=== PATIENT | female | born 1940 | race Caucasian/White ===

== ENCOUNTER → 2016-04-06 | Outpatient (CLI) | payer MEDICARE, OTHER ==
[2016-04-06 12:55] LABS: ABSOLUTE BASOPHILS # (AUTO) 0.2 10^3/uL (0.0-0.2); ABSOLUTE EOSINOPHILS # (AUTO) 0.9 10^3/uL (0.0-0.6); ABSOLUTE LYMPHOCYTES (AUTO) 2.7 10^3/uL (0.5-4.7); ABSOLUTE MONOCYTES (AUTO) 1.1 10^3/uL (0.1-1.4); ABSOLUTE NEUT (AUTO) 10.6 10^3/uL (1.7-8.2); BASOPHILS % (AUTO) 1.2 % (0-2); EOSINOPHILS % (AUTO) 5.5 % (0-6); HEMATOCRIT 38.1 % (36.0-47.0); HEMOGLOBIN 12.5 g/dL (12.0-15.5); HGB HCT DIFFERENCE -0.6; LYMPHOCYTES % (AUTO) 17.6 % (13-45); MEAN CORPUSCULAR HEMOGLOBIN 28.1 pg (27.0-33.4); MEAN CORPUSCULAR HGB CONC 32.7 g/dL (32.0-36.0); MEAN CORPUSCULAR VOLUME 86 fl (80-97); RED BLOOD COUNT 4.43 10^6/uL (3.72-5.28); SEGMENTED NEUTROPHILS % (AUTO) 68.7 % (42-78); WHITE BLOOD COUNT 15.5 10^3/uL (4.0-10.5)
[2016-04-06 13:11] LABS: ALANINE AMINOTRANSFERASE 24 U/L (9-52); ALBUMIN 4.3 g/dL (3.5-5.0); ALKALINE PHOSPHATASE 78 U/L (38-126); ANION GAP 11 (5-19); ASPARTATE AMINO TRANSFERASE 15 U/L (14-36); BILIRUBIN,TOTAL 0.7 mg/dL (0.2-1.3); BLOOD UREA NITROGEN 20 mg/dL (7-20); CALCIUM 9.8 mg/dL (8.4-10.2); CARBON DIOXIDE 28 mmol/L (22-30); CHLORIDE 102 mmol/L (98-107); CREATININE RESULT 0.67 mg/dL (0.52-1.25); GLUCOSE 89 mg/dL (75-110); IRON 67 ug/dL (37-170); POTASSIUM 4.8 mmol/L (3.6-5.0); SODIUM 140.8 mmol/L (137-145); TOTAL PROTEIN 6.7 g/dL (6.3-8.2); TRIGLYCERIDES 95 mg/dL (<150)
[2016-04-06 13:12] LABS: CHOLESTEROL 149.77 mg/dL (0-200); Direct HDL 68 mg/dL (>40)
[2016-04-06 13:23] LABS: DIRECT LDL 66 mg/dL (<100)
== END ==
LOC: OD 11:39
PROVIDERS: ATTEND Internal Medicine
DX: E11.9 Type 2 diabetes mellitus without complications (principal); I25.10 Atherosclerotic heart disease of native coronary artery without angina pectoris; R53.83 Other fatigue; E78.5 Hyperlipidemia, unspecified; D64.9 Anemia, unspecified
CPT/HCPCS: 36415; 80053; 80061; 83036; 83540; 84443; 85025

== ENCOUNTER → 2016-07-12 | Outpatient (CLI) | payer MEDICARE, OTHER ==
[2016-07-12 13:33] LABS: ABSOLUTE BASOPHILS # (AUTO) 0.2 10^3/uL (0.0-0.2); ABSOLUTE EOSINOPHILS # (AUTO) 0.7 10^3/uL (0.0-0.6); ABSOLUTE LYMPHOCYTES (AUTO) 2.5 10^3/uL (0.5-4.7); ABSOLUTE MONOCYTES (AUTO) 0.7 10^3/uL (0.1-1.4); ABSOLUTE NEUT (AUTO) 8.7 10^3/uL (1.7-8.2); BASOPHILS % (AUTO) 1.5 % (0-2); EOSINOPHILS % (AUTO) 5.6 % (0-6); HEMATOCRIT 38.9 % (36.0-47.0); HEMOGLOBIN 12.4 g/dL (12.0-15.5); HGB HCT DIFFERENCE -1.7; LYMPHOCYTES % (AUTO) 19.2 % (13-45); MEAN CORPUSCULAR HEMOGLOBIN 28.3 pg (27.0-33.4); MEAN CORPUSCULAR VOLUME 88 fl (80-97); MONOCYTES % (AUTO) 5.8 % (3-13); RED BLOOD COUNT 4.41 10^6/uL (3.72-5.28); RED CELL DISTRIBUTION WIDTH 14.9 % (11.5-14.0); SEGMENTED NEUTROPHILS % (AUTO) 67.9 % (42-78); WHITE BLOOD COUNT 12.8 10^3/uL (4.0-10.5)
[2016-07-12 13:57] LABS: ALANINE AMINOTRANSFERASE 27 U/L (9-52); ALBUMIN 4.2 g/dL (3.5-5.0); ALKALINE PHOSPHATASE 104 U/L (38-126); ANION GAP 10 (5-19); ASPARTATE AMINO TRANSFERASE 17 U/L (14-36); BILIRUBIN,DIRECT 0.3 mg/dL (0.0-0.4); BILIRUBIN,TOTAL 0.6 mg/dL (0.2-1.3); BLOOD UREA NITROGEN 14 mg/dL (7-20); CALCIUM 10.3 mg/dL (8.4-10.2); CARBON DIOXIDE 29 mmol/L (22-30); CHLORIDE 103 mmol/L (98-107); CHOLESTEROL 160.69 mg/dL (0-200); CREATININE RESULT 0.65 mg/dL (0.52-1.25); Direct HDL 76 mg/dL (>40); GLUCOSE 97 mg/dL (75-110); MAGNESIUM 1.7 mg/dL (1.6-2.3); POTASSIUM 4.7 mmol/L (3.6-5.0); SODIUM 141.5 mmol/L (137-145); TOTAL PROTEIN 7.2 g/dL (6.3-8.2); TRIGLYCERIDES 83 mg/dL (<150)
[2016-07-12 14:08] LABS: DIRECT LDL 64 mg/dL (<100)
== END ==
LOC: OD 12:14
PROVIDERS: ATTEND Internal Medicine
DX: E11.9 Type 2 diabetes mellitus without complications (principal); I73.9 Peripheral vascular disease, unspecified; E78.5 Hyperlipidemia, unspecified; E53.8 Deficiency of other specified B group vitamins
CPT/HCPCS: 36415; 80053; 80061; 82043; 82607; 83036; 83735; 84443; 85025

== ENCOUNTER → 2017-04-04 | Outpatient (CLI) | payer MEDICARE, OTHER ==
[2017-04-04 13:44] LABS: HEMATOCRIT 35.8 % (36.0-47.0); MEAN CORPUSCULAR HEMOGLOBIN 28.7 pg (27.0-33.4); MEAN CORPUSCULAR HGB CONC 33.5 g/dL (32.0-36.0); MEAN CORPUSCULAR VOLUME 86 fl (80-97); PLATELET COUNT 995 10^3/uL (150-450); RED BLOOD COUNT 4.18 10^6/uL (3.72-5.28); RED CELL DISTRIBUTION WIDTH 15.9 % (11.5-14.0); WHITE BLOOD COUNT 20.3 10^3/uL (4.0-10.5)
[2017-04-04 14:07] LABS: ABSOLUTE LYMPHOCYTES# (MANUAL) 2.2 10^3/uL (0.5-4.7); ABSOLUTE MONOCYTES # (MANUAL) 0.4 10^3/uL (0.1-1.4); ABSOLUTE NEUTROPHILS# (MANUAL) 15.4 10^3/uL (1.7-8.2); BAND NEUTROPHILS % (MANUAL) 2 % (3-5); BASOPHILS % (MANUAL) 3 % (0-2); EOSINOPHILS % (MANUAL) 8 % (0-6); LYMPHOCYTES % (MANUAL) 10 % (13-45); METAMYELOCYTES % (MANUAL) 1 % (0); MONOCYTES % (MANUAL) 2 % (3-13); SEGMENTED NEUTROPHILS % (MAN) 73 % (42-78); TOTAL CELLS COUNTED 100
[2017-04-04 14:08] LABS: ANISOCYTOSIS SLIGHT; TOXIC GRANULATION 1+
[2017-04-04 14:09] LABS: OVALOCYTES 1+; PLATELET COMMENT INCREASED; POIKILOCYTOSIS 1+
[2017-04-04 14:13] LABS: ALANINE AMINOTRANSFERASE 21 U/L (9-52); ALBUMIN 4.4 g/dL (3.5-5.0); ALKALINE PHOSPHATASE 93 U/L (38-126); ANION GAP 11 (5-19); ASPARTATE AMINO TRANSFERASE 16 U/L (14-36); BILIRUBIN,DIRECT 0.2 mg/dL (0.0-0.4); BILIRUBIN,TOTAL 0.4 mg/dL (0.2-1.3); BLOOD UREA NITROGEN 12 mg/dL (7-20); CALCIUM 10.1 mg/dL (8.4-10.2); CARBON DIOXIDE 26 mmol/L (22-30); CHLORIDE 104 mmol/L (98-107); CHOLESTEROL 164.14 mg/dL (0-200); GLUCOSE 87 mg/dL (75-110); POTASSIUM 4.2 mmol/L (3.6-5.0); TOTAL PROTEIN 6.4 g/dL (6.3-8.2); TRIGLYCERIDES 113 mg/dL (<150)
[2017-04-04 14:24] LABS: DIRECT LDL 77 mg/dL (<100)
== END ==
LOC: OD 12:43
PROVIDERS: ATTEND Internal Medicine
DX: E11.9 Type 2 diabetes mellitus without complications (principal); I10 Essential (primary) hypertension; E78.5 Hyperlipidemia, unspecified; I25.10 Atherosclerotic heart disease of native coronary artery without angina pectoris; R53.83 Other fatigue
CPT/HCPCS: 36415; 80053; 80061; 83036; 85025

== ENCOUNTER 2017-07-02 13:05 | Inpatient (IN) | payer MEDICARE, OTHER ==
[2017-07-02] MEDS ORDERED: ONDANSETRON HCL INJ/PF 4 MG/2 ML SDV IV ONE ×2 (14:03→16:30)
[2017-07-02] MEDS ORDERED: NORMAL SALINE 1000 ML 1,000 ML IV ONE ×2 (14:03→16:32)
[2017-07-02 14:15] LABS: INTERNATIONAL RATION (INR) 1.01; PROTHROMBIN TIME 13.8 SEC (11.4-15.4)
[2017-07-02 14:17] LABS: HEMATOCRIT 31.9 % (36.0-47.0); HEMOGLOBIN 10.6 g/dL (12.0-15.5); MEAN CORPUSCULAR HEMOGLOBIN 28.7 pg (27.0-33.4); MEAN CORPUSCULAR HGB CONC 33.1 g/dL (32.0-36.0); MEAN CORPUSCULAR VOLUME 87 fl (80-97); RED BLOOD COUNT 3.69 10^6/uL (3.72-5.28); RED CELL DISTRIBUTION WIDTH 17.4 % (11.5-14.0)
[2017-07-02 14:27] LABS: ALANINE AMINOTRANSFERASE 32 U/L (9-52); ALBUMIN 4.2 g/dL (3.5-5.0); ALKALINE PHOSPHATASE 95 U/L (38-126); ANION GAP 11 (5-19); ASPARTATE AMINO TRANSFERASE 25 U/L (14-36); BILIRUBIN,DIRECT 0.3 mg/dL (0.0-0.4); BILIRUBIN,TOTAL 0.7 mg/dL (0.2-1.3); BLOOD UREA NITROGEN 23 mg/dL (7-20); CALCIUM 9.6 mg/dL (8.4-10.2); CARBON DIOXIDE 28 mmol/L (22-30); CHLORIDE 98 mmol/L (98-107); GLUCOSE 119 mg/dL (75-110); POTASSIUM 5.1 mmol/L (3.6-5.0); SODIUM 137.4 mmol/L (137-145); TOTAL PROTEIN 6.8 g/dL (6.3-8.2)
[2017-07-02 14:30] LABS: VENOUS BLOOD HCO3 26.6 mmol/L (20-32); VENOUS BLOOD PCO2 45.6 mmHg (35-63); VENOUS BLOOD PH 7.38 (7.30-7.42)
[2017-07-02 14:56] LABS: PLATELET COUNT 1369 10^3/uL (150-450); WHITE BLOOD COUNT 34.6 10^3/uL (4.0-10.5)
[2017-07-02 14:59] LABS: ABSOLUTE LYMPHOCYTES# (MANUAL) 4.2 10^3/uL (0.5-4.7); ABSOLUTE MONOCYTES # (MANUAL) 1.7 10^3/uL (0.1-1.4); ABSOLUTE NEUTROPHILS# (MANUAL) 28.4 10^3/uL (1.7-8.2); BASOPHILS % (MANUAL) 1 % (0-2); EOSINOPHILS % (MANUAL) 0 % (0-6); LYMPHOCYTES % (MANUAL) 12 % (13-45); METAMYELOCYTES % (MANUAL) 1 % (0); MONOCYTES % (MANUAL) 5 % (3-13); SEGMENTED NEUTROPHILS % (MAN) 81 % (42-78); TOTAL CELLS COUNTED 100
[2017-07-02 15:01] LABS: ANISOCYTOSIS 1+; OVALOCYTES SLIGHT; PLATELET COMMENT INCREASED; POIKILOCYTOSIS SLIGHT; TOXIC GRANULATION 1+; TOXIC VACUOLATION PRESENT
[2017-07-02 15:02] LABS: PLATELET LARGE PRESENT
[2017-07-02 15:44] LABS: APPEARANCE,URINE CLEAR; BILIRUBIN,URINE NEGATIVE (NEGATIVE); COLOR,URINE YELLOW; GLUCOSE, URINE NEGATIVE (NEGATIVE); KETONES,URINE TRACE mg/dL (NEGATIVE); LEUKOCYTE ESTERASE,URINE TRACE (NEGATIVE); NITRITE,URINE NEGATIVE (NEGATIVE); PROTEIN,URINE NEGATIVE (NEGATIVE); URINE SPECIFIC GRAVITY 1.009; UROBILINOGEN,URINE NEGATIVE mg/dL (<2.0)
[2017-07-02] MEDS ORDERED: METOCLOPRAMIDE HCL INJ/PF 10 MG/2 ML SDV IV ONE (16:29)
[2017-07-02] MEDS ORDERED: DIPHENHYDRAMINE HCL 50 MG/ML VIAL IV ONE (16:30)
--- NOTE | 2017-07-02 18:27 | RADIOLOGY REPORT (SQ) ---
EXAM DESCRIPTION: CHEST 2 VIEWS COMPLETED DATE/TIME: 07/02/2017 6:15 pm REASON FOR STUDY: Leukemia, cough, chills COMPARISON: [facility] 2014. TECHNIQUE: Frontal and lateral radiographic views of the chest acquired. NUMBER OF VIEWS: Two view. LIMITATIONS: None. FINDINGS: LUNGS AND PLEURA: Diffuse interstitial pattern throughout the lungs, upper and lower lobes . Small bilateral pleural effusions, blunting of the posterior costophrenic angles. MEDIASTINUM AND HILAR STRUCTURES: No masses or contour abnormalities. HEART AND VASCULAR STRUCTURES: Mild cardiomegaly. No pneumothorax. No consolidating pneumonia. BONES: No acute findings. HARDWARE: None in the chest. OTHER: No other significant finding. IMPRESSION: 1. Interstitial infiltrates and mild edema diffusely throughout the lungs. Although th e differential includes cardiogenic edema, given the history of cough, chills and leukemia, atypical causes of pneumonia (viral, mycobacterial, etc) are in the differential. A typical bacterial consoli dating pneumonia is not evident. TECHNICAL DOCUMENTATION: JOB ID: [id number] [employer]- All Rights Reserved Reading location - IP/workstation name: [email or web address]
[2017-07-02] MEDS ORDERED: FUROSEMIDE INJ/PF 40 MG/4 ML SDV IV ONE (18:46)
[2017-07-02] MEDS ORDERED: METHYLPREDNISOLONE INJ 125 MG/2 ML SDV IV ONE (18:46)
--- NOTE | 2017-07-02 18:59 | ER Document Report ---
ED General - General Chief Complaint: Nausea/Vomiting Stated Complaint: VOMITING Time Seen by Provider: 07/02/17 14:02 Notes: Patient is here complaining of nausea and vomiting and diarrhea since about Monday or Monday. Patient recently diagnosed with chronic myelogenous leukemia, about a month ago, and has just started on a new chemotherapy pill, Sprycel, her first dose was Monday and she takes it daily and did take it today. She has Zofran at home and it is not helping her nausea and vomiting. Denies any abdominal pains. Denies any chest pains. Has had some slight cough but denies feeling short of breath. Has had a low-grade fever. TRAVEL OUTSIDE OF THE [place] IN LAST 30 DAYS: No - Related Data Allergies/Adverse Reactions: No Known Allergies Allergy (Verified 07/02/17 13:10) Past Medical History - Social History Smoking Status: Never Smoker Chew tobacco use (# tins/day): No Frequency of alcohol use: None Drug Abuse: None Family History: Reviewed & Not Pertinent Patient has suicidal ideation: No Patient has homicidal ideation: No - Past Medical History Cardiac Medical History: Reports: Hx Atrial Fibrillation, Hx Hypertension - medicated Pulmonary Medical History: Denies: Hx Asthma, Hx COPD Endocrine Medical History: Reports: Hx Diabetes Mellitus Type 2 Malignancy Medical History: Reports: Hx Leukemia - CML Psychiatric Medical History: Denies: Hx Depression Past Surgical History: Reports: Hx Appendectomy, Hx Cholecystectomy, Hx Hysterectomy, Other - Lap band surgery - Immunizations Hx Pneumococcal Vaccination: 03/30/15 Review of Systems - Review of Systems Notes: REVIEW OF SYSTEMS: CONSTITUTIONAL : Has had low-grade fevers for a couple of days.. EENT: Denies eye, ear, nose or mouth or throat pain or other symptoms. CARDIOVASCULAR: Denies chest pain. RESPIRATORY: Has had some cough for the past couple of days. Denies feeling short of breath. GASTROINTESTINAL: Denies abdominal pain but has had nausea, vomiting, and diarrhea. GENITOURINARY: Denies difficulty or painful urinating, urinary frequency, blood in urine. MUSCULOSKELETAL: Denies back or neck pain. Denies joint pain or swelling. SKIN: Denies rash or skin lesions. NEUROLOGICAL: Denies LOC or altered mental status. Denies headache. Denies sensory loss or motor deficits. ALL OTHER SYSTEMS REVIEWED AND NEGATIVE. Physical Exam - Vital signs Vitals: Temp Pulse Resp BP Pulse Ox 99.3 F 79 16 82/65 L 89 L 07/02/17 13:24 07/02/17 13:24 07/02/17 13:24 07/02/17 13:24 07/02/17 13:24 Interpretation: Normal, Hypotensive, Hypoxic - Notes Notes: PHYSICAL EXAMINATION: GENERAL: Well-appearing, in no acute distress. O2 sat listed at 89% and blood pressure 82/65 in triage. HEAD: Atraumatic, normocephalic. EYES: Pupils equal round and reactive to light, extraocular movements intact. ENT: oropharynx clear without exudates. Moist mucous membranes. NECK: Normal range of motion, supple. LUNGS: Breath sounds clear and equal bilaterally. No significant wheezes or rales heard. HEART: Regular rate and rhythm without murmurs. ABDOMEN: Soft, nontender. No guarding or rebound. No masses. BACK: No tenderness throughout entire back. EXTREMITIES: Normal range of motion without pain. NEUROLOGICAL: Normal speech, normal gait. Normal sensory, motor, and reflex exams. Awake, alert, and oriented x3. Cranial nerves normal. PSYCH: Normal mood, normal affect. SKIN: Warm, dry, no rashes. Course - Re-evaluation Re-evalutation: 07/02/17 19:48 Patient developed more significant coughing during her stay in the department. She was given 2 L of saline. When patient would get up to go to the bathroom, off of oxygen, her O2 sat was noted to be in the mid 80s. Because of the persistent cough and the hypoxia, chest x-ray was obtained. Radiology read the x-ray as showing infiltrates and mild edema, perhaps cardiogenic edema, but atypical pneumonia had to be considered in the differential. Both the patient and the oncologist are aware that this new medication can cause fluid excess and overload in the lungs. Patient's white cell count is 34.6 and she recalls that it was 37.8 on June 27. She also recalls that her platelet count was about 1400 and it is 1369 here tonight. I spoke with the patient's on-call oncologist twice, the first time thinking we would send the patient home to follow-up in the office tomorrow, but the second time was after I obtain the patient's chest x-ray and it was evident that she would not be able to go home. We discussed plan of care and agreed to give the patient some Lasix to try to reduce the fluid load. Also to give her Solu- Medrol. Hospitalist was contacted and will see the patient and admit her for inpatient care. - Vital Signs Vital signs: Temp Pulse Resp BP Pulse Ox 99.3 F 79 23 H 122/55 L 91 L 07/02/17 13:24 07/02/17 13:24 07/02/17 18:01 07/02/17 17:46 07/02/17 18:01 - Laboratory Result Diagrams: 07/02/17 13:45 07/02/17 13:45 Laboratory results interpreted by me: 07/02/17 07/02/17 07/02/17 13:45 13:45 15:25 WBC 34.6 H* RBC 3.69 L Hgb 10.6 L Hct 31.9 L RDW 17.4 H Plt Count 1369 H* Seg Neuts % (Manual) 81 H Lymphocytes % (Manual) 12 L Metamyelocytes % 1 H Abs Neuts (Manual) 28.4 H Abs Monocytes (Manual) 1.7 H Abs Basophils (Manual) 0.3 H Potassium 5.1 H BUN 23 H Glucose 119 H Urine Ketones TRACE H Ur Leukocyte Esterase TRACE H 07/02/17 19:36 Patient recalls that her WBC was 37.8 on June 27. She also recalls that her platelet count was around 1400. Both of those numbers are very close to what she is today. - Diagnostic Test Radiology results interpreted by me: 07/02/17 19:37 Chest x-ray read by radiology reveals interstitial infiltrates and edema diffusely throughout the lungs. Although the differential includes cardiogenic edema, this could be atypical pneumonia or the beginnings of a bacterial pneumonia. - EKG Interpretation by Ma EKG shows normal: Sinus rhythm Rate: Normal Rhythm: NSR, APC's [place]/QRS: RBBB, LAHB/LAFB Critical Care Note - Critical Care Note Total time excluding time spent on procedures (mins): 45 Discharge - Discharge Clinical Impression: Hypoxia, Pulmonary edema, Chronic myelogenous leukemia Condition: Stable Disposition: ADMITTED INPATIENT Admitting Provider: Hospitalist Unit Admitted: Telemetry Referrals: BRIAN WALSH MD [Primary Care Provider] - Follow up as needed
--- NOTE | 2017-07-02 19:06 | EKG REPORT ---
SEVERITY:- ABNORMAL ECG - SINUS RHYTHM MULTIPLE ATRIAL PREMATURE COMPLEXES RBBB AND LPFB : Confirmed by: Azael Mcgraw 02-Jul-2017 19:06:18
[2017-07-02] MEDS ORDERED: ACETAMINOPHEN 325 MG TABLET PO PRN (20:10)
[2017-07-02] MEDS ORDERED: PROMETHAZINE HCL INJ 25 MG/1 ML VIAL IV PRN (20:10)
[2017-07-02] MEDS ORDERED: INSULIN LISPRO 100 UNIT/ML 3 ML VIAL SUBCUT PRN (20:17)
[2017-07-02] MEDS ORDERED: DEXTROSE 50%-WATER 25 GM/50 ML DISP.SYRIN IV PRN ×2 (20:17)
[2017-07-02] MEDS ORDERED: DEXTROSE 40% GEL 15 GM TUBE PO PRN ×2 (20:17)
[2017-07-02] MEDS ORDERED: GLUCAGON,HUMAN RECOMB 1 MG INJ IM PRN (20:17)
[2017-07-02] MEDS ORDERED: ZOLPIDEM TARTRATE 5 MG TABLET PO PRN (20:18)
[2017-07-02] MEDS ORDERED: HEPARIN SOD (PORCINE) 5,000 UNIT/ML 1 ML SYRINGE SUBCUT ONE ×2 (20:25→21:45)
[2017-07-02] MEDS ORDERED: ASPIRIN 325 MG TABLET PO ONE (20:27)
--- NOTE | 2017-07-02 20:47 | PDOC H&P ---
History of Present Illness Admission Date/PCP: BRIAN WALSH, History of Present Illness: ALEXIS CANCHOLA is a 76 year old female patient with past medical history of HTN, DM, HLD, A. fib presented with chief complaint of nausea, vomiting and diarrhea of 5 days duration. Of note patient recently diagnosed with CML and has been started on a new drug called Sprycel since Monday. Patient denies chills, fever, chest pain, cough, palpitation or diaphoresis. She has no nausea vomiting diarrhea but no abdominal pain, hematochezia or melena. Her initial blood workup shows leukocytosis of 34,000 and platelet count of 1,369 and her chest x-ray reported as interstitial infiltrates and mild edema diffusely throughout the lungs. They are attending consulted her primary oncologist and he is attributed her condition to the new medication that she has been started. He recommended to start her on Solu-Medrol. Past Medical History Cardiac Medical History: Reports: Atrial Fibrillation, Hypertension - medicated Pulmonary Medical History: Denies: Asthma, Chronic Obstructive Pulmonary Disease (COPD) Endocrine Medical History: Reports: Diabetes Mellitus Type 2 Malignancy Medical History: Reports: Leukemia - CML Psychiatric Medical History: Denies: Depression Hematology: Denies: Anemia, Sickle Cell Disease Past Surgical History Past Surgical History: Reports: Appendectomy, Cholecystectomy, Hysterectomy, Other - Lap band surgery Denies: Amputation Social History Smoking Status: Never Smoker Frequency of Alcohol Use: Rare Hx Recreational Drug Use: No Drugs: None Hx Prescription Drug Abuse: No - Advance Directive Resuscitation Status: Full Code Family History Family History: Reviewed & Not Pertinent Parental Family History Reviewed: Yes Children Family History Reviewed: Yes Sibling(s) Family History Reviewed.: Yes Medication/Allergy Home Medications: Atorvastatin Calcium [Lipitor] 20 mg PO DAILY 11/19/13 Biotin 2 cap PO DAILY 11/19/13 Bydureon 2 mg SUBCUT .QWK 11/19/13 Magnesium Oxide 400 mg PO TID 11/19/13 Metformin HCl [Glucophage] 1,000 mg PO BID 11/19/13 Telmisartan [Micardis 80 mg Tablet] 80 mg PO QAM 11/19/13 Amlodipine Besylate [Norvasc 5 mg Tablet] 5 mg PO DAILY 10/05/15 Cholecalciferol (Vitamin D3) [Vitamin D3 2000 unit Tablet] 2,000 unit PO BID 10/12 Metoprolol Succinate [Toprol Xl 25 mg Tab.sr] 25 mg PO DAILY 10/05/15 Tramadol HCl 50 mg PO Q4 PRN 10/05/15 Zolpidem Tartrate [Ambien 5 mg Tablet] 5 mg PO HSP PRN 10/05/15 Dofetilide [Tikosyn 500 Mcg Capsule] 500 mcg PO Q12 #0 capsule 10/07/15 Lansoprazole [Prevacid 30 mg Odt Tablet] 30 mg PO BID@0600,1700 #0 tab.rap.dr Methocarbamol [Robaxin 500 mg Tablet] 500 mg PO QID #120 tablet 10/07/15 Prednisone [Deltasone 20 mg Tablet] 10 mg PO BID #60 tablet 10/07/15 Allergies/Adverse Reactions: No Known Allergies Allergy (Verified 07/02/17 13:10) Review of Systems Constitutional: PRESENT: as per HPI Eyes: PRESENT: as per HPI Cardiovascular: PRESENT: as per HPI Respiratory: PRESENT: as per HPI Gastrointestinal: PRESENT: as per HPI Neurological: PRESENT: as per HPI Physical Exam Vital Signs: Temp Pulse Resp BP Pulse Ox 99.3 F 79 23 H 122/55 L 91 L 07/02/17 13:24 07/02/17 13:24 07/02/17 18:01 07/02/17 17:46 07/02/17 18:01 Intake & Output 07/01/17 07/02/17 07/03/17 06:59 06:59 06:59 Weight 72.5 kg General appearance: PRESENT: mild distress Head exam: PRESENT: atraumatic, normocephalic Respiratory exam: PRESENT: clear to auscultation nazario. ABSENT: rales, rhonchi, wheezes Cardiovascular exam: PRESENT: RRR. ABSENT: diastolic murmur, rubs, systolic murmur GI/Abdominal exam: PRESENT: normal bowel sounds, soft. ABSENT: distended, guarding, mass, organolmegaly, rebound, tenderness Results Laboratory Results: 07/02/17 13:45 07/02/17 13:45 07/02/17 07/02/17 07/02/17 13:45 13:45 14:01 WBC 34.6 H* RBC 3.69 L Hgb 10.6 L Hct 31.9 L MCV 87 MCH 28.7 MCHC 33.1 RDW 17.4 H Plt Count 1369 H* Seg Neutrophils % Not Reportable Lymphocytes % Not Reportable Monocytes % Not Reportable Eosinophils % Not Reportable Basophils % Not Reportable Absolute Neutrophils Not Reportable Absolute Lymphocytes Not Reportable Absolute Monocytes Not Reportable Absolute Eosinophils Not Reportable Absolute Basophils Not Reportable VBG pH VBG pCO2 VBG HCO3 VBG Base Excess Sodium 137.4 Potassium 5.1 H Chloride 98 Carbon Dioxide 28 Anion Gap 11 BUN 23 H Creatinine 0.76 Est GFR ( Amer) > 60 Est GFR (Non-Af Amer) > 60 Glucose 119 H Lactic Acid 0.8 Calcium 9.6 Total Bilirubin 0.7 AST 25 ALT 32 Alkaline Phosphatase 95 Total Protein 6.8 Albumin 4.2 Urine Color Urine Appearance Urine pH Ur Specific [place] Urine Protein Urine Glucose (UA) Urine Ketones Urine Blood Urine Nitrite Ur Leukocyte Esterase Urine WBC (Auto) Urine RBC (Auto) 07/02/17 07/02/17 14:01 15:25 WBC RBC Hgb Hct MCV MCH MCHC RDW Plt Count Seg Neutrophils % Lymphocytes % Monocytes % Eosinophils % Basophils % Absolute Neutrophils Absolute Lymphocytes Absolute Monocytes Absolute Eosinophils Absolute Basophils VBG pH 7.38 VBG pCO2 45.6 VBG HCO3 26.6 VBG Base Excess 1.0 Sodium Potassium Chloride Carbon Dioxide Anion Gap BUN Creatinine Est GFR ( Amer) Est GFR (Non-Af Amer) Glucose Lactic Acid Calcium Total Bilirubin AST ALT Alkaline Phosphatase Total Protein Albumin Urine Color YELLOW Urine Appearance CLEAR Urine pH 5.0 Ur Specific [place] 1.009 Urine Protein NEGATIVE Urine Glucose (UA) NEGATIVE Urine Ketones TRACE H Urine Blood NEGATIVE Urine Nitrite NEGATIVE Ur Leukocyte Esterase TRACE H Urine WBC (Auto) 0 Urine RBC (Auto) 0 Impressions: Chest X-Ray 07/02/17 17:43 IMPRESSION: 1. Interstitial infiltrates and mild edema diffusely throughout the lungs. Although the differential includes cardiogenic edema, given the history of cough, chills and leukemia, atypical causes of pneumonia (viral, mycobacterial, etc) are in the differential. A typical bacterial consolidating pneumonia is not evident. Assessment & Plan - Diagnosis (1) Pneumonia Qualifiers: Pneumonia type: due to unspecified organism Is this a current diagnosis for this admission?: Yes Plan: There is a patient does not have any clinical symptoms of pneumonia but her chest x-ray reportedly worrisome for a typical pneumonia. Patient has been started on doxycycline. (2) Pulmonary edema Qualifiers: Chronicity: acute Qualified Code(s): J81.0 - Acute pulmonary edema Is this a current diagnosis for this admission?: Yes Plan: Patient has been started on Lasix. Patient also started on low-dose Solu-Medrol as recommended by her primary oncologist (3) CML (chronic myelocytic leukemia) Is this a current diagnosis for this admission?: Yes Plan: Per her primary oncologist (5) Diabetes mellitus Qualifiers: Diabetes mellitus type: type 2 Is this a current diagnosis for this admission?: Yes Plan: I will continue her metformin and she will be on sliding scale. - Time Time Spent: 30 to 50 Minutes - Inpatient Certification Medical Necessity: Significant Comorbidiites Make Outpatient Treatment Too Risky , Need For IV Fluids, Need for IV Antibiotics
[2017-07-02] MEDS ORDERED: DOXYCYCLINE HYCLATE INJ 100 MG VIAL IV PRN (21:44)
[2017-07-02] MEDS ORDERED: METHOCARBAMOL 500 MG TABLET PO SCH (22:00)
[2017-07-02] MEDS: DOXYCYCLINE HYCLATE 100 MG in DEXTROSE 5%-WATER 250 ML IV SCH (22:01)
[2017-07-02] MEDS ORDERED: DOFETILIDE 500 MCG CAPSULE ONE (22:20)
[2017-07-03] MEDS ORDERED: DIPHENHYDRAMINE HCL 25 MG CAPSULE PO PRN (00:05)
[2017-07-03] MEDS: DOFETILIDE 500 MCG CAPSULE PO SCH ×3 (00:13→20:06)
[2017-07-03] MEDS: METHYLPREDNISOLONE INJ 40 MG/1 ML SDV IV SCH ×2 (00:13→06:12)
[2017-07-03] MEDS: LANSOPRAZOLE 30 MG TAB.RAP.DR PO SCH (06:12)
[2017-07-03 06:42] LABS: HEMATOCRIT 31.1 % (36.0-47.0); HEMOGLOBIN 10.3 g/dL (12.0-15.5); MEAN CORPUSCULAR HEMOGLOBIN 28.5 pg (27.0-33.4); MEAN CORPUSCULAR VOLUME 86 fl (80-97); RED BLOOD COUNT 3.61 10^6/uL (3.72-5.28); RED CELL DISTRIBUTION WIDTH 16.8 % (11.5-14.0); WHITE BLOOD COUNT 29.3 10^3/uL (4.0-10.5)
[2017-07-03 07:02] LABS: ANION GAP 17 (5-19); BLOOD UREA NITROGEN 17 mg/dL (7-20); CALCIUM 9.6 mg/dL (8.4-10.2); CARBON DIOXIDE 25 mmol/L (22-30); CHLORIDE 102 mmol/L (98-107); GLUCOSE 193 mg/dL (75-110); POTASSIUM 4.3 mmol/L (3.6-5.0); SODIUM 143.9 mmol/L (137-145)
[2017-07-03 07:21] LABS: PLATELET COUNT 1407 10^3/uL (150-450)
[2017-07-03 07:24] LABS: ABSOLUTE LYMPHOCYTES# (MANUAL) 2.3 10^3/uL (0.5-4.7); ABSOLUTE MONOCYTES # (MANUAL) 0.3 10^3/uL (0.1-1.4); ABSOLUTE NEUTROPHILS# (MANUAL) 26.7 10^3/uL (1.7-8.2); BAND NEUTROPHILS % (MANUAL) 3 % (3-5); BASOPHILS % (MANUAL) 0 % (0-2); EOSINOPHILS % (MANUAL) 0 % (0-6); LYMPHOCYTES % (MANUAL) 8 % (13-45); METAMYELOCYTES % (MANUAL) 1 % (0); MONOCYTES % (MANUAL) 1 % (3-13); SEGMENTED NEUTROPHILS % (MAN) 87 % (42-78); TOTAL CELLS COUNTED 100
[2017-07-03 07:26] LABS: ANISOCYTOSIS 1+; PLATELET COMMENT INCREASED; POIKILOCYTOSIS 1+; TEAR DROP CELLS 1+; TOXIC GRANULATION SLIGHT; TOXIC VACUOLATION PRESENT
[2017-07-03] MEDS: LOSARTAN POTASSIUM 50 MG TABLET PO SCH (07:57)
[2017-07-03] MEDS ORDERED: (PENDING PHARMACY ID) (Telmisartan [Micardis 80 Mg Tablet] 80 MG) PO SCH (08:00)
--- NOTE | 2017-07-03 08:44 | PDOC CONSULTATION ---
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 She was initiated on Sprycel just last week, unfortunately she experienced nausea right after the first dose, she continued to take the medication and ultimately had some vomiting, about 3 days after initiation she began having cough and shortness of breath. Ultimately because she was not able to keep anything down she called her office and we recommended her to go to the ED. There she had chest x-ray which indicated evidence of fluid overload and bilateral small effusions. She was given IV hydration and ultimately was admitted because she was actually hypoxic. Past Medical History Cardiac Medical History: Reports: Atrial Fibrillation, Hypertension - medicated Pulmonary Medical History: Denies: Asthma, Chronic Obstructive Pulmonary Disease (COPD) Endocrine Medical History: Reports: Diabetes Mellitus Type 2 Malignancy Medical History: Reports: Leukemia - CML Psychiatric Medical History: Denies: Depression Hematology: Denies: Anemia, Sickle Cell Disease Past Surgical History Past Surgical History: Reports: Appendectomy, Cholecystectomy, Hysterectomy, Other - Lap band surgery Denies: Amputation Social History Information Source: Patient Smoking Status: Never Smoker Frequency of Alcohol Use: None Hx Recreational Drug Use: No Drugs: None Hx Prescription Drug Abuse: No - Advance Directive Resuscitation Status: Full Code Family History Family History: Reviewed & Not Pertinent Parental Family History Reviewed: Yes Children Family History Reviewed: Yes Sibling(s) Family History Reviewed.: Yes Medication/Allergy Allergies/Adverse Reactions: No Known Allergies Allergy (Verified 07/02/17 13:10) Review of Systems Constitutional: PRESENT: anorexia, fatigue, weakness Cardiovascular: PRESENT: dyspnea on exertion, orthropnea Respiratory: PRESENT: cough, dyspnea Gastrointestinal: PRESENT: nausea, vomiting Neurological: ABSENT: abnormal gait, abnormal speech, confusion, dizziness, focal weakness, syncope Psychiatric: ABSENT: anxiety, depression, homidical ideation, suicidal ideation Endocrine: ABSENT: cold intolerance, heat intolerance, polydipsia, polyuria Physical Exam Vital Signs: Temp Pulse Resp BP Pulse Ox 98.4 F 91 16 131/51 H 90 L 07/03/17 07:07 07/03/17 07:07 07/03/17 07:07 07/03/17 07:07 07/03/17 07:07 Intake & Output 07/02/17 07/03/17 07/04/17 06:59 06:59 06:59 Intake Total 385 Balance 385 Weight 72.5 kg General appearance: PRESENT: no acute distress, well-developed, well-nourished Head exam: PRESENT: atraumatic, normocephalic Eye exam: PRESENT: conjunctiva pink, EOMI, PERRLA. ABSENT: scleral icterus Ear exam: PRESENT: normal external ear exam Mouth exam: PRESENT: moist, tongue midline Neck exam: ABSENT: carotid bruit, JVD, lymphadenopathy, thyromegaly Respiratory exam: PRESENT: crackles Cardiovascular exam: PRESENT: RRR. ABSENT: diastolic murmur, rubs, systolic murmur Pulses: PRESENT: normal dorsalis pedis pul Vascular exam: PRESENT: normal capillary refill GI/Abdominal exam: PRESENT: normal bowel sounds, soft. ABSENT: distended, guarding, mass, organolmegaly, rebound, tenderness Rectal exam: PRESENT: deferred Extremities exam: PRESENT: full ROM. ABSENT: calf tenderness, clubbing, pedal edema Neurological exam: PRESENT: alert, awake, oriented to person, oriented to place , oriented to time, oriented to situation, CN II-XII grossly intact. ABSENT: motor sensory deficit Psychiatric exam: PRESENT: appropriate affect, normal mood. ABSENT: homicidal ideation, suicidal ideation Skin exam: PRESENT: dry, intact, warm. ABSENT: cyanosis, rash Results Laboratory Results: 07/03/17 06:19 07/03/17 06:19 07/03/17 07/03/17 06:19 06:19 WBC 29.3 H RBC 3.61 L Hgb 10.3 L Hct 31.1 L MCV 86 MCH 28.5 MCHC 33.0 RDW 16.8 H Plt Count 1407 H* Seg Neutrophils % Not Reportable Lymphocytes % Not Reportable Monocytes % Not Reportable Eosinophils % Not Reportable Basophils % Not Reportable Absolute Neutrophils Not Reportable Absolute Lymphocytes Not Reportable Absolute Monocytes Not Reportable Absolute Eosinophils Not Reportable Absolute Basophils Not Reportable Sodium 143.9 Potassium 4.3 Chloride 102 Carbon Dioxide 25 Anion Gap 17 BUN 17 Creatinine 0.66 Est GFR ( Amer) > 60 Est GFR (Non-Af Amer) > 60 Glucose 193 H Calcium 9.6 Magnesium 2.1 Impressions: Chest X-Ray 07/02/17 17:43 IMPRESSION: 1. Interstitial infiltrates and mild edema diffusely throughout the lungs. Although the differential includes cardiogenic edema, given the history of cough, chills and leukemia, atypical causes of pneumonia (viral, mycobacterial, etc) are in the differential. A typical bacterial consolidating pneumonia is not evident. Status: Image reviewed by me Assessment & Plan - Diagnosis (1) Pulmonary edema Qualifiers: Chronicity: acute Qualified Code(s): J81.0 - Acute pulmonary edema Is this a current diagnosis for this admission?: Yes Plan: Probably related to Sprycel, an uncommon side effect unfortunately is pleural effusion as well as edema, if this side effect comes about we recommend initiation of steroids as well as diuretics. She is also being treated as a possible atypical pneumonia, that should be continued. Ultimately she will need a steroid taper upon discharge. (2) Nausea & vomiting Qualifiers: Vomiting type: cyclical vomiting Vomiting Intractability: intractable Qualified Code(s): G43.A1 - Cyclical vomiting, intractable Is this a current diagnosis for this admission?: Yes Plan: Vomiting related to side effect of drug, this morning she feels a little bit better but still nauseous, we have to see how she does over the next 24 hours, she needs to be able to keep down fluids, and that should be the case in the next 24-48 hours. (3) CML (chronic myelocytic leukemia) Is this a current diagnosis for this admission?: Yes Plan: Chronic phase CML, we will need to discontinue Sprycel, as an outpatient we will decide on either initiation of Tasigna or Gleevec. - Time Time Spent: Greater than 70 Minutes - Inpatient Certification Based on my medical assessment, after consideration of the patient's comorbidities, presenting symptoms, or acuity I expect that the services needed warrant INPATIENT care.: Yes I certify that my determination is in accordance with my understanding of Medicare's requirements for reasonable and necessary INPATIENT services [42 CFR 412.3e].: Yes Medical Necessity: Need Close Monitoring Due to Risk of Patient Decompensation, Need for IV Antibiotics, Risk of Complication if Not Cared For in Hospital
--- NOTE | 2017-07-03 08:56 | PDOC PROGRESS REPORT ---
Subjective Progress Note for:: 07/03/17 Subjective:: The patient states to feel slightly better. She is still short of breath has a cough and the nausea has improved Reason For Visit: PNEUMONIA, PULMONARY EDEMA Physical Exam Vital Signs: Temp Pulse Resp BP Pulse Ox 98.4 F 91 16 131/51 H 90 L 07/03/17 07:07 07/03/17 07:07 07/03/17 07:07 07/03/17 07:07 07/03/17 07:07 Intake & Output 07/02/17 07/03/17 07/04/17 06:59 06:59 06:59 Intake Total 385 Balance 385 Weight 72.5 kg General appearance: PRESENT: mild distress Head exam: PRESENT: atraumatic Eye exam: PRESENT: conjunctiva pink Neck exam: ABSENT: carotid bruit Respiratory exam: PRESENT: rales Cardiovascular exam: PRESENT: irregular rhythm, +S1, +S2 Pulses: PRESENT: +1 pedal pulses bilateral GI/Abdominal exam: PRESENT: normal bowel sounds, soft Extremities exam: PRESENT: full ROM Musculoskeletal exam: PRESENT: ambulatory Neurological exam: PRESENT: alert, awake Results Laboratory Results: 07/03/17 06:19 07/03/17 06:19 07/03/17 07/03/17 06:19 06:19 WBC 29.3 H RBC 3.61 L Hgb 10.3 L Hct 31.1 L MCV 86 MCH 28.5 MCHC 33.0 RDW 16.8 H Plt Count 1407 H* Seg Neutrophils % Not Reportable Lymphocytes % Not Reportable Monocytes % Not Reportable Eosinophils % Not Reportable Basophils % Not Reportable Absolute Neutrophils Not Reportable Absolute Lymphocytes Not Reportable Absolute Monocytes Not Reportable Absolute Eosinophils Not Reportable Absolute Basophils Not Reportable Sodium 143.9 Potassium 4.3 Chloride 102 Carbon Dioxide 25 Anion Gap 17 BUN 17 Creatinine 0.66 Est GFR ( Amer) > 60 Est GFR (Non-Af Amer) > 60 Glucose 193 H Calcium 9.6 Magnesium 2.1 Impressions: Chest X-Ray 07/02/17 17:43 IMPRESSION: 1. Interstitial infiltrates and mild edema diffusely throughout the lungs. Although the differential includes cardiogenic edema, given the history of cough, chills and leukemia, atypical causes of pneumonia (viral, mycobacterial, etc) are in the differential. A typical bacterial consolidating pneumonia is not evident. Assessment & Plan - Diagnosis (1) A-fib Is this a current diagnosis for this admission?: Yes Plan: Continue current medications (2) CML (chronic myelocytic leukemia) Is this a current diagnosis for this admission?: Yes Plan: Hematology oncology consultation appreciated. Will continue with the recommendations. (3) Diabetes mellitus Qualifiers: Diabetes mellitus type: type 2 Is this a current diagnosis for this admission?: Yes Plan: Continue current medications (4) Nausea & vomiting Qualifiers: Vomiting type: cyclical vomiting Vomiting Intractability: intractable Qualified Code(s): G43.A1 - Cyclical vomiting, intractable Is this a current diagnosis for this admission?: Yes Plan: Most probably related to recent chemotherapy (5) Pulmonary edema Qualifiers: Chronicity: acute Qualified Code(s): J81.0 - Acute pulmonary edema Is this a current diagnosis for this admission?: Yes Plan: The pleural effusion is improving. We will continue diureses
[2017-07-03] MEDS: CHOLECALCIFEROL (D3) 1,000 UNIT TABLET PO SCH ×2 (09:50→17:12)
[2017-07-03] MEDS: METOPROLOL SUCCINATE 25 MG TAB.SR.24H PO SCH (09:50)
[2017-07-03] MEDS: MAGNESIUM OXIDE 400 MG TABLET PO SCH ×4 (09:50→21:04)
[2017-07-03] MEDS: AMLODIPINE BESYLATE 5 MG TABLET PO SCH (09:51)
[2017-07-03] MEDS: FUROSEMIDE INJ/PF 40 MG/4 ML SDV IV SCH ×2 (09:51→21:05)
[2017-07-03] MEDS: DOXYCYCLINE HYCLATE 100 MG in DEXTROSE 5%-WATER 250 ML IV SCH ×2 (09:52→21:00)
[2017-07-03] MEDS ORDERED: ATORVASTATIN CALCIUM 20 MG TABLET PO SCH ×3 (10:00→22:00)
[2017-07-03] MEDS ORDERED: (PENDING PHARMACY ID) (Cholecalciferol (Vitamin D3) [Vitamin D3 2000 Unit Tablet] 2,000 UN PO SCH (10:00)
[2017-07-03] MEDS ORDERED: METFORMIN HCL 500 MG TABLET PO SCH (10:00)
[2017-07-03] MEDS: PREDNISONE 20 MG TABLET PO SCH (17:11)
[2017-07-03] MEDS ORDERED: ONDANSETRON 4 MG TAB.RAPDIS SL PRN (17:41)
[2017-07-03] MEDS ORDERED: TRAMADOL HCL 50 MG TABLET PO PRN (17:41)
[2017-07-03] MEDS ORDERED: PROMETHAZINE HCL 25 MG TABLET PO PRN (17:41)
[2017-07-03] MEDS ORDERED: HYDROCODONE/ACETAMINOPHEN 5-325 MG TABLET PO PRN (17:41)
[2017-07-03] MEDS ORDERED: DOFETILIDE 500 MCG CAPSULE PO SCH (22:00)
[2017-07-03] MEDS ORDERED: ZOLPIDEM TARTRATE 5 MG TABLET PO SCH (22:00)
[2017-07-03] MEDS ORDERED: METOPROLOL SUCCINATE 25 MG TAB.SR.24H PO SCH (22:00)
[2017-07-04 05:57] LABS: HEMATOCRIT 28.5 % (36.0-47.0); HEMOGLOBIN 9.3 g/dL (12.0-15.5); MEAN CORPUSCULAR HEMOGLOBIN 28.1 pg (27.0-33.4); MEAN CORPUSCULAR HGB CONC 32.7 g/dL (32.0-36.0); MEAN CORPUSCULAR VOLUME 86 fl (80-97); RED BLOOD COUNT 3.31 10^6/uL (3.72-5.28); RED CELL DISTRIBUTION WIDTH 17.1 % (11.5-14.0); WHITE BLOOD COUNT 26.2 10^3/uL (4.0-10.5)
[2017-07-04] MEDS: LANSOPRAZOLE 30 MG TAB.RAP.DR PO SCH (06:00)
[2017-07-04] MEDS: MAGNESIUM OXIDE 400 MG TABLET PO SCH ×2 (06:00→09:35)
[2017-07-04 06:06] LABS: ANION GAP 9 (5-19); BLOOD UREA NITROGEN 17 mg/dL (7-20); CALCIUM 9.5 mg/dL (8.4-10.2); CARBON DIOXIDE 32 mmol/L (22-30); CHLORIDE 101 mmol/L (98-107); GLUCOSE 132 mg/dL (75-110); POTASSIUM 3.8 mmol/L (3.6-5.0); SODIUM 142.3 mmol/L (137-145)
[2017-07-04 06:46] LABS: PLATELET COUNT 1545 10^3/uL (150-450)
[2017-07-04 06:49] LABS: ABSOLUTE LYMPHOCYTES# (MANUAL) 3.1 10^3/uL (0.5-4.7); ABSOLUTE MONOCYTES # (MANUAL) 0.8 10^3/uL (0.1-1.4); ABSOLUTE NEUTROPHILS# (MANUAL) 22.3 10^3/uL (1.7-8.2); BASOPHILS % (MANUAL) 0 % (0-2); EOSINOPHILS % (MANUAL) 0 % (0-6); LYMPHOCYTES % (MANUAL) 12 % (13-45); MONOCYTES % (MANUAL) 3 % (3-13); SEGMENTED NEUTROPHILS % (MAN) 85 % (42-78); TOTAL CELLS COUNTED 100
[2017-07-04 06:50] LABS: ANISOCYTOSIS 2+; OVALOCYTES SLIGHT; PLATELET COMMENT INCREASED; PLATELET GIANT PRESENT; PLATELET LARGE PRESENT; POIKILOCYTOSIS SLIGHT; TOXIC VACUOLATION PRESENT
[2017-07-04] MEDS ORDERED: METFORMIN HCL 500 MG TABLET PO SCH (08:00)
[2017-07-04 08:12] VITALS: BP 146/64
[2017-07-04] MEDS: DOFETILIDE 500 MCG CAPSULE PO SCH (08:19)
[2017-07-04] MEDS: LOSARTAN POTASSIUM 50 MG TABLET PO SCH (08:20)
--- NOTE | 2017-07-04 08:47 | PDOC PROGRESS REPORT ---
Subjective Progress Note for:: 07/04/17 Subjective:: Patient doing better this morning, able to keep down fluids as well as food over last 24 hours. Reason For Visit: PNEUMONIA, PULMONARY EDEMA Physical Exam Vital Signs: Temp Pulse Resp BP Pulse Ox 98.4 F 74 17 146/64 H 96 07/04/17 08:10 07/04/17 08:10 07/04/17 08:10 07/04/17 08:10 07/04/17 08:10 Intake & Output 07/03/17 07/04/17 07/05/17 06:59 06:59 06:59 Intake Total 385 2415 Output Total 3000 Balance 385 -585 Weight 72.5 kg 75 kg General appearance: PRESENT: no acute distress, well-developed, well-nourished Head exam: PRESENT: atraumatic, normocephalic Eye exam: PRESENT: conjunctiva pink, EOMI, PERRLA. ABSENT: scleral icterus Ear exam: PRESENT: normal external ear exam Mouth exam: PRESENT: moist, tongue midline Neck exam: ABSENT: carotid bruit, JVD, lymphadenopathy, thyromegaly Respiratory exam: PRESENT: clear to auscultation nazario. ABSENT: rales, rhonchi, wheezes Cardiovascular exam: PRESENT: RRR. ABSENT: diastolic murmur, rubs, systolic murmur Pulses: PRESENT: normal dorsalis pedis pul Vascular exam: PRESENT: normal capillary refill GI/Abdominal exam: PRESENT: normal bowel sounds, soft. ABSENT: distended, guarding, mass, organolmegaly, rebound, tenderness Rectal exam: PRESENT: deferred Extremities exam: PRESENT: full ROM. ABSENT: calf tenderness, clubbing, pedal edema Neurological exam: PRESENT: alert, awake, oriented to person, oriented to place , oriented to time, oriented to situation, CN II-XII grossly intact. ABSENT: motor sensory deficit Psychiatric exam: PRESENT: appropriate affect, normal mood. ABSENT: homicidal ideation, suicidal ideation Skin exam: PRESENT: dry, intact, warm. ABSENT: cyanosis, rash Results Laboratory Results: 07/04/17 05:01 07/04/17 05:01 07/04/17 07/04/17 05:01 05:01 WBC 26.2 H RBC 3.31 L Hgb 9.3 L Hct 28.5 L MCV 86 MCH 28.1 MCHC 32.7 RDW 17.1 H Plt Count 1545 H* Seg Neutrophils % Not Reportable Lymphocytes % Not Reportable Monocytes % Not Reportable Eosinophils % Not Reportable Basophils % Not Reportable Absolute Neutrophils Not Reportable Absolute Lymphocytes Not Reportable Absolute Monocytes Not Reportable Absolute Eosinophils Not Reportable Absolute Basophils Not Reportable Sodium 142.3 Potassium 3.8 Chloride 101 Carbon Dioxide 32 H Anion Gap 9 BUN 17 Creatinine 0.71 Est GFR ( Amer) > 60 Est GFR (Non-Af Amer) > 60 Glucose 132 H Calcium 9.5 Impressions: Chest X-Ray 07/02/17 17:43 IMPRESSION: 1. Interstitial infiltrates and mild edema diffusely throughout the lungs. Although the differential includes cardiogenic edema, given the history of cough, chills and leukemia, atypical causes of pneumonia (viral, mycobacterial, etc) are in the differential. A typical bacterial consolidating pneumonia is not evident. Assessment & Plan - Diagnosis (1) Pulmonary edema Qualifiers: Chronicity: acute Qualified Code(s): J81.0 - Acute pulmonary edema Is this a current diagnosis for this admission?: Yes Plan: Secondary to Sprycel, she will continue the hold the drug and we will need to discontinue that and start something else as an outpatient. (2) Nausea & vomiting Qualifiers: Vomiting type: cyclical vomiting Vomiting Intractability: intractable Qualified Code(s): G43.A1 - Cyclical vomiting, intractable Is this a current diagnosis for this admission?: Yes Plan: Secondary to Sprycel, patient is tolerating p.o. now, from an oncologic standpoint she is appropriate to discharge and she will follow-up with us next week. (3) CML (chronic myelocytic leukemia) Is this a current diagnosis for this admission?: Yes Plan: DC Sprycel, will need to initiate another treatment as an outpatient.
[2017-07-04] MEDS: AMLODIPINE BESYLATE 5 MG TABLET PO SCH (09:35)
[2017-07-04] MEDS: CHOLECALCIFEROL (D3) 1,000 UNIT TABLET PO SCH (09:36)
[2017-07-04] MEDS: PREDNISONE 20 MG TABLET PO SCH (09:37)
[2017-07-04] MEDS: METOPROLOL SUCCINATE 25 MG TAB.SR.24H PO SCH (09:37)
[2017-07-04] MEDS ORDERED: AMLODIPINE BESYLATE 5 MG TABLET PO SCH (10:00)
[2017-07-04] MEDS ORDERED: LOSARTAN POTASSIUM 50 MG TABLET PO SCH (10:00)
[2017-07-04] MEDS ORDERED: FUROSEMIDE 40 MG TABLET PO SCH (10:00)
[2017-07-04] MEDS ORDERED: (PENDING PHARMACY ID) (Telmisartan [Micardis 80 Mg Tablet] 80 MG) PO SCH (10:00)
[2017-07-04] MEDS ORDERED: FERROUS SULFATE 325 MG TABLET PO SCH (10:00)
[2017-07-04] MEDS ORDERED: ASPIRIN 81 MG TABLET, ENT COATED PO SCH (10:00)
[2017-07-04] MEDS ORDERED: POLYETHYLENE GLYCOL 3350 POWDER 17 GM/1 PACKET PO SCH (10:00)
--- NOTE | 2017-07-04 11:49 | PDOC DISCHARGE SUMMARY ---
General - Admit/Disc Date/PCP Admission Date/Primary Care Provider: 07/02/17 20:22 BRIAN WALSH, Discharge Date: 07/04/17 - Discharge Diagnosis (1) A-fib Is this a current diagnosis for this admission?: Yes Summary: Continue current treatment and follow-up with door paneler (2) CML (chronic myelocytic leukemia) Is this a current diagnosis for this admission?: Yes Summary: We will continue with prednisone and diuretics and follow-up with hematology oncology (3) Diabetes mellitus Is this a current diagnosis for this admission?: Yes Summary: Stable continue current medications (4) Nausea & vomiting Is this a current diagnosis for this admission?: Yes Summary: Resolved most probably related to the chemotherapy (5) Pulmonary edema Is this a current diagnosis for this admission?: Yes Summary: Improved most probably related to chemotherapy and some pleural effusion - Additional Information Resuscitation Status: Full Code Discharge Diet: Cardiac Discharge Activity: Activity As Tolerated Home Medications: Amlodipine Besylate [Norvasc 5 mg Tablet] 5 mg PO DAILY 07/03/17 Aspirin [Ecotrin 81 mg EC Tablet] 81 mg PO DAILY 07/03/17 Atorvastatin Calcium [Lipitor 20 mg Tablet] 20 mg PO QHS 07/03/17 Dofetilide [Tikosyn 500 Mcg Capsule] 500 mcg PO Q12 07/03/17 Ferrous Sulfate [Feosol 325 mg Tablet] 325 mg PO DAILY 07/03/17 Hydrocodone/Acetaminophen [Hydrocodone-Acetamin 5-325 mg] 1 tab PO Q6HP PRN 09/13 Magnesium Oxide [Mag-Ox 400 mg Tablet] 400 mg PO Q8 07/03/17 Metformin HCl [Glucophage 500 mg Tablet] 500 mg PO MEALS 07/03/17 Metoprolol Succinate [Toprol Xl 25 mg Tab.sr] 25 mg PO Q12 07/03/17 Ondansetron [Zofran Odt 4 mg Tablet] 4 mg SL Q8HP PRN 07/03/17 Polyethylene Glycol 3350 [Miralax Powder 17 gm/Packet] 17 gm PO DAILY 07/03/17 Promethazine HCl [Phenergan 25 mg Tablet] 25 mg PO Q6HP PRN 07/03/17 Telmisartan [Micardis 80 mg Tablet] 80 mg PO DAILY 07/03/17 Tramadol HCl [Ultram 50 mg Tablet] 50 mg PO Q8HP PRN 07/03/17 Zolpidem Tartrate [Ambien 5 mg Tablet] 5 mg PO QHS 07/03/17 History of Present Illness History of Present Illness: ALEXIS CANCHOLA is a 76 year old female Hospital Course Hospital Course: The patient did well after the hospitalization. Once her medications have been readjusted and she was started on prednisone and Lasix as recommended by the oncologist her symptomatology has improved. She did not have any fever chills. We have discussed the case with the finishing room supervisor oncologist and a decision has been made to discharge patient on prednisone and Lasix and not antibiotics Physical Exam Vital Signs: Temp Pulse Resp BP Pulse Ox 98.4 F 74 17 146/64 H 96 07/04/17 09:58 07/04/17 09:58 07/04/17 09:58 07/04/17 09:58 07/04/17 09:58 Intake & Output 07/03/17 07/04/17 07/05/17 06:59 06:59 06:59 Intake Total 385 2415 Output Total 3000 Balance 385 -585 Weight 72.5 kg 75 kg General appearance: PRESENT: no acute distress Head exam: PRESENT: atraumatic Eye exam: PRESENT: conjunctiva pink Neck exam: ABSENT: carotid bruit, JVD Respiratory exam: PRESENT: crackles Cardiovascular exam: PRESENT: irregular rhythm, +S1, +S2 GI/Abdominal exam: PRESENT: normal bowel sounds, soft Extremities exam: PRESENT: full ROM Musculoskeletal exam: PRESENT: ambulatory Neurological exam: PRESENT: alert, awake Results Laboratory Results: 07/04/17 05:01 07/04/17 05:01 07/04/17 07/04/17 05:01 05:01 WBC 26.2 H RBC 3.31 L Hgb 9.3 L Hct 28.5 L MCV 86 MCH 28.1 MCHC 32.7 RDW 17.1 H Plt Count 1545 H* Seg Neutrophils % Not Reportable Lymphocytes % Not Reportable Monocytes % Not Reportable Eosinophils % Not Reportable Basophils % Not Reportable Absolute Neutrophils Not Reportable Absolute Lymphocytes Not Reportable Absolute Monocytes Not Reportable Absolute Eosinophils Not Reportable Absolute Basophils Not Reportable Sodium 142.3 Potassium 3.8 Chloride 101 Carbon Dioxide 32 H Anion Gap 9 BUN 17 Creatinine 0.71 Est GFR ( Amer) > 60 Est GFR (Non-Af Amer) > 60 Glucose 132 H Calcium 9.5 Impressions: Chest X-Ray 07/02/17 17:43 IMPRESSION: 1. Interstitial infiltrates and mild edema diffusely throughout the lungs. Although the differential includes cardiogenic edema, given the history of cough, chills and leukemia, atypical causes of pneumonia (viral, mycobacterial, etc) are in the differential. A typical bacterial consolidating pneumonia is not evident. Qualifiers - * PATIENT BEING DISCHARGED WITH ANY OF THE FOLLOWING DIAGNOSIS: No
== END 2017-07-04 10:55 | disposition home or self-care (01) | DRG 189 ==
LOC: ER 13:05 → EH 20:22 → 3W 23:42
PROVIDERS: ADMIT Internal Medicine; ATTEND Internal Medicine
DX: J81.0 Acute pulmonary edema (principal); C92.10 Chronic myeloid leukemia, BCR/ABL-positive, not having achieved remission; I48.91 Unspecified atrial fibrillation; T45.1X5A Adverse effect of antineoplastic and immunosuppressive drugs, initial encounter; I10 Essential (primary) hypertension; E11.9 Type 2 diabetes mellitus without complications; G43.A1 Cyclical vomiting, in migraine, intractable; Z79.899 Other long term (current) drug therapy; Z90.49 Acquired absence of other specified parts of digestive tract; Z90.710 Acquired absence of both cervix and uterus; Z98.84 Bariatric surgery status; Z79.84 Long term (current) use of oral hypoglycemic drugs; Z79.52 Long term (current) use of systemic steroids
CPT/HCPCS: 36415; 71046; 80048; 80053; 81001; 82803; 82962; 83605; 83735; 85025; 85610; 87040; 87086; 93005; 93010; 96361; 96374; 96375; 96376; 99291; J1200; J1644; J1815; J1940; J2405; J2550; J2765; J2920; J2930; J3490; J7030; J7060; J7512

== ENCOUNTER → 2018-07-24 | Outpatient (CLI) | payer MEDICARE, OTHER ==
--- NOTE | 2018-07-24 14:43 | WOMENS IMAGING REPORT ---
EXAM DESCRIPTION: BONE DENSITY HIP/SPINE COMPLETED DATE/TIME: 07/24/2018 2:04 pm REASON FOR STUDY: Z78.0 ASYMPTOMATIC MENOPAUSAL STATE Z78.0 ASYMPTOMATIC MENOPAUSAL STATE COMPARISON: 02/01/2016 09/11/2013 08/05/2011 08/11/2005 TECHNIQUE: Dual-Energy X-ray Absorptiometry (DEXA) of the AP Spine and Hip. LIMITATIONS: None. FINDINGS: LUMBAR SPINE: The bone mineral density (BMD) measured from L1-L4 in the AP projection correlates with a T-score of 4.4, which is normal as defined by the World Health Organization. HIP: The bone mineral density (BMD) measured in the left hip correlates with a T-score of -0.3 in the femo ral neck, which is normal as defined by the World Health Organization. IMPRESSION: 1. LUMBAR SPINE: Normal 2. HIP: Normal COMMENT: The World Health Organization defines low BMD as follows: T-score: Normal: Greater than -1.0 Osteopenia: Between -1.0 and -2.5 Osteoporosis: Less than -2.5 without fractures Established osteoporosis: Less than -2.5 with fractures In general, you may wish to consider: Diagnosis Treatment Follow-up DEXA Normal BMD Prevention 2-3 years Osteopenia Prevention/Therapy 1-2 years Osteoporosis Therapy Yearly TECHNICAL DOCUMENTATION: JOB ID: [id number]- All Rights Reserved Reading location - IP/workstation name: [email or web address]
== END ==
LOC: WI 14:29
PROVIDERS: ATTEND Internal Medicine
DX: Z78.0 Asymptomatic menopausal state (principal)
CPT/HCPCS: 77080

== ENCOUNTER → 2019-08-05 | Outpatient (CLI) | payer MEDICARE, OTHER ==
[2019-08-05 13:52] LABS: ALKALINE PHOSPHATASE 70 U/L (38-126); ANION GAP 5 (5-19); ASPARTATE AMINO TRANSFERASE 25 U/L (14-36); BILIRUBIN,TOTAL 0.7 mg/dL (0.2-1.3); BLOOD UREA NITROGEN 11 mg/dL (7-20); CALCIUM 9.1 mg/dL (8.4-10.2); CARBON DIOXIDE 30 mmol/L (22-30); CHLORIDE 103 mmol/L (98-107); CHOLESTEROL 119.02 mg/dL (0-200); GLUCOSE 87 mg/dL (75-110); POTASSIUM 4.6 mmol/L (3.6-5.0); TOTAL PROTEIN 6.4 g/dL (6.3-8.2); TRIGLYCERIDES 92 mg/dL (<150)
[2019-08-05 14:03] LABS: DIRECT LDL 45 mg/dL (<100)
== END ==
LOC: OD 12:31
PROVIDERS: ATTEND Internal Medicine
DX: I10 Essential (primary) hypertension (principal); E11.9 Type 2 diabetes mellitus without complications; E78.5 Hyperlipidemia, unspecified; R53.83 Other fatigue
CPT/HCPCS: 36415; 80053; 80061; 83036; 84443

== ENCOUNTER → 2019-08-26 | Outpatient (CLI) | payer MEDICARE, OTHER ==
[2019-08-26 14:40] LABS: FREE T3 2.44 pg/mL (2.77-5.27); FREE T4 (FREE THYROXINE) 1.24 ng/dL (0.78-2.19)
[2019-08-26 14:53] LABS: THYROID STIMULATING HORMONE 0.02 uIU/mL (0.47-4.68)
== END ==
LOC: OD 13:00
PROVIDERS: ATTEND Internal Medicine
DX: E03.9 Hypothyroidism, unspecified (principal)
CPT/HCPCS: 36415; 84439; 84443; 84481

== ENCOUNTER → 2019-08-30 | Outpatient (CLI) | payer MEDICARE, OTHER ==
[2019-08-30 16:06] VITALS: BP 141/61
--- NOTE | 2019-08-30 16:06 | ER RDC ASSESSMENT REPORT ---
Intake - In the Last 14 days Have you traveled outside [place]?: No Have you been in close contact with someone CONFIRMED: No Worked in Healthcare?: No - Symptoms Subjective Fever([place] feverish): No Chills: No Muscule Aches: No Runny Nose: No Sore Throat: No Cough (New or worsening chronic cough): No Shortness of breath: No Nausea or Vomiting: No Headache: No Abdominal Pain: No Diarrhea(3 or more loose stools in last 24 hours): Yes - Do you have any of the following Chronic lung disease: Asthma or emphysema or COPD: No Cystic Fibrosis: No Diabetes: Yes High Blood Pressure: Yes Cardiovascular Disease: No Chronic Kidney Disease: No Chronic Liver Disease: No Chronic blood disorder like Sickle Cell Disease: No Weak immune system due to disease or medication: Yes Immune System Comment: Leukemia Neurologic condition that limits movement: No Developmental delay - Moderate to Severe: No Recent (within past 2 weeks) or current : No Morbid Obesity (>100 pounds over ideal weight): No - Objective Temperature: 98.1 F - Oral Pulse Rate: 70 Respiratory Rate: 22 Blood Pressure: 141/61 O2 Sat by Pulse Oximetry: 96 Objective: Patient is a well-appearing 79-year-old female who presents today for COVID-19 screening. Disposition: Home; Selfcare General - General Stated Complaint: Upper respiratory symptoms x10 days Mode of Arrival: Ambulatory Information source: Patient Notes: The patient was evaluated during the global COVID-19 pandemic. That diagnosis was suspected/considered upon initial presentation. Their evaluation, treatment, and testing was consistent with current guidelines for patients who present with complaints or symptoms that may be related to COVID-19. - HPI Patient complains to provider of: Upper respiratory symptoms Onset: Other - 10 days Onset/Duration: Persistent Quality of pain: No pain Severity: None Pain Level: Denies Associated symptoms: Diarrhea Exacerbated by: Denies Relieved by: Denies Similar symptoms previously: No Recently seen / treated by doctor: No - Related Data Allergies/Adverse Reactions: No Known Allergies Allergy (Verified 07/02/17 13:10) Past Medical History - Social History Smoking Status: Never Smoker Cigarette use (# per day): No Chew tobacco use (# tins/day): No Smoking Education Provided: No Frequency of alcohol use: Rare Drug Abuse: None Occupation: Retired Lives with: Family Family History: Reviewed & Not Pertinent Patient has suicidal ideation: No Patient has homicidal ideation: No - Past Medical History Cardiac Medical History: Reports: Hx Atrial Fibrillation, Hx Hypertension - medicated Denies: Hx Heart Attack Pulmonary Medical History: Denies: Hx Asthma, Hx COPD Neurological Medical History: Denies: Hx Cerebrovascular Accident, Hx Seizures Endocrine Medical History: Reports: Hx Diabetes Mellitus Type 2 Renal/ Medical History: Denies: Hx Peritoneal Dialysis Malignancy Medical History: Reports: Hx Leukemia - CML GI Medical History: Denies: Hx Hepatitis, Hx Hiatal Hernia, Hx Ulcer Psychiatric Medical History: Denies: Hx Depression Infectious Medical History: Denies: Hx Hepatitis Past Surgical History: Reports: Hx Appendectomy, Hx Cholecystectomy, Hx Hysterectomy, Other - Lap band surgery. Denies: Hx Mastectomy, Hx Open Heart Surgery, Hx Pacemaker Physical Exam - General General appearance: Appears well In distress: None Notes: PHYSICAL EXAMINATION: GENERAL: Well-appearing and in no acute distress. HEAD: Atraumatic, normocephalic. EYES: sclera anicteric, conjunctiva are normal. ENT: nares patent. Moist mucous membranes. NECK: Normal range of motion, supple without lymphadenopathy. LUNGS: CTAB and equal. No wheezes rales or rhonchi. HEART: Regular rate and rhythm without murmurs. EXTREMITIES: Normal range of motion, no pitting edema. No cyanosis. BACK: No midline or CVA tenderness. NEUROLOGICAL: Cranial nerves grossly intact. Normal speech. PSYCH: Normal mood, normal affect. SKIN: Warm, Dry, normal color and turgor, no obvious lesions or rash noted. Diagnostic Results Laboratory Results: Patient advised at this time they are considered a Person Under Investigation (PUI) for the COVID-19 Coronavirus. They have been made aware it is currently taking 3-5 days to receive their results, and The Department will call to advise them of their result, whether it is POSITIVE or NEGATIVE. Patient Education/Counseling Counseling/Education: Patient presents with upper respiratory symptoms worrisome for possible COVID- 19. Patient does not have symptoms worrisome as an emergency such as difficulty breathing, shortness of breath, chest pain, pressure, confusion or cyanosis. Patient appears suitable for discharge. Patient's vital signs are stable and patient is nontoxic in appearance. Good return precautions have been discussed with patient, patient verbalized understanding and is agreeable with discharge plan of care at this time. Patient provided COVID-19 discharge instructions to include: As a person under investigation for COVID-19, the [place] department of Health and Human Services, division of public health advises you to adhere to the following guidance until your test results are reported to you. If your test result is positive, you will receive additional information from your provider and your local health department at that time. Remain at home until you are cleared by the health provider or public health authorities. Keep a log of visitors to your home, notify any visitors to your home of your isolation status. If you plan to move to a new address or leave the county, notify the local health department in your County. Call your doctor or seek care if you have an urgent medical need. Before seeking medical care, call ahead to get instructions from the provider before arriving at the medical office clinic or hospital. Notify them that you are being tested for the virus that causes COVID-19 so that arrangements can be made, as necessary, to prevent transmission to others in the healthcare setting. Next, notify the local health department in your county. If a medical emergency arises and you need to call 911, inform dispatch and the first responders that you are being tested for the virus that causes COVID-19. Next, notify the local health department in your county. Guidance for worsening S/SX: For worsening symptoms, patient has been advised to contact their Primary Care Provider, or go to the nearest Emergency Department. RDC Discharge - Discharge Clinical Impression: COVID-19 Screening URI (upper respiratory infection) Qualifiers: URI type: unspecified URI Qualified Code(s): J06.9 - Acute upper respiratory infection, unspecified Condition: Stable Disposition: Home; Selfcare
== END ==
LOC: RDC 14:58
PROVIDERS: ATTEND Nurse Practitioner Family
DX: Z03.818 Encounter for observation for suspected exposure to other biological agents ruled out (principal); R09.89 Other specified symptoms and signs involving the circulatory and respiratory systems; R19.7 Diarrhea, unspecified; E11.9 Type 2 diabetes mellitus without complications; I10 Essential (primary) hypertension; C92.10 Chronic myeloid leukemia, BCR/ABL-positive, not having achieved remission
CPT/HCPCS: 99201; U0003; G0463; C9803; 87635; 99211